=== PATIENT | male | born 1995 | race Caucasian/White ===

== ENCOUNTER 2019-08-27 15:30 | Emergency (ER) | payer BC, OTHER ==
[2019-08-27 15:53] VITALS: BP 161/94; PULSE 78
[2019-08-27] MEDS ORDERED: Lidocaine 1% 20 ML MDV ONE (15:55)
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
[2019-08-27] MEDS ORDERED: Acetaminophen/oxyCODONE 325-5 MG Tab PO ONE (16:53)
== END 2019-08-27 17:00 | disposition home or self-care (01) ==
LOC: KA.ED 15:30
DX: S01.511A Laceration without foreign body of lip, initial encounter (principal); S40.211A Abrasion of right shoulder, initial encounter; Z88.1 Allergy status to other antibiotic agents; V68.5XXA Driver of heavy transport vehicle injured in noncollision transport accident in traffic accident, initial encounter; Y92.410 Unspecified street and highway as the place of occurrence of the external cause
CPT/HCPCS: 12011; 70486; 99283; A9270